=== PATIENT | female | born 1960 | race African-American/Black ===

== ENCOUNTER 2017-04-04 11:00 | Outpatient (CLI) | payer MEDICARE, MEDICAID ==
[2017-04-04 11:11] LABS: #Basophils 0.1 thou/uL (0.0-0.2); #Eosinphils 0.3 thou/uL (0.0-0.7); #Lymphocytes 2.7 thou/uL (1.20-3.40); #Monocytes 0.7 thou/uL (0.11-0.59); #Neutrophils 5.5 thou/uL (1.40-6.50); %Basophils 1.3 % (0.0-1.0); %Eosinophils 3.7 % (0.0-10.0); %Lymphocytes 28.6 % (21.0-51.0); %Monocytes 7.6 % (0.0-10.0); %Neutrophils 58.9 % (42.0-75.0); Hemoglobin 12.4 g/dL (12.0-16.0); Mean Corpuscular HGB CONC 34.7 g/dL (32.0-36.0); Mean Corpuscular Hemoglobin 31.7 pg (27.0-31.0); Mean Corpuscular Volume 91.3 fl (81.0-99.0); Mean Platelet Volume 7.8 fL (7.4-10.4); Platelet Count 203 thou/uL (130-400); RBC Distribution Width 12.7 % (11.5-14.5); White Blood Cell (WBC) Count 9.3 thou/uL (4.8-10.8)
[2017-04-04 11:29] LABS: Hemoglobin A1c 6.3 % (4.0-6.0)
[2017-04-04 11:31] LABS: ALT (SGPT) 19 U/L (8-55); AST (SGOT) 21 U/L (5-34); Albumin 4.1 g/dL (3.5-5.0); Alkaline Phosphatase 76 U/L (40-150); Anion Gap 14 mmol/L (10-20); BUN (Urea Nitrogen) 28 mg/dL (9.8-20.1); Bilirubin, Total 0.5 mg/dL (0.2-1.2); Calc. Creatinine Clearance 0 mL/min (70-130); Calcium 9.8 mg/dL (7.8-10.44); Carbon Dioxide 31 mmol/L (22-29); Cardiac Risk 2.7 (Less than 4.5); Chloride 97 mmol/L (98-107); Cholesterol 131 mg/dl (< 200 Desired); Estimated GFR-MDRD 56; Glucose 113 mg/dL (70-105); HDL Cholesterol 49 mg/dL (>60 Neg Risk); LDL Cholesterol, Calculated 74 mg/dL; Potassium 4.2 mmol/L (3.5-5.1); Protein, Total 7.1 g/dL (6.0-8.3); Sodium 138 mmol/L (136-145); Triglycerides 40 mg/dL (Less than 150)
[2017-04-04 12:05] LABS: Free T4 (Free Thyroxine) 1.05 ng/dL (0.70-1.48); Thyroid Stimulating Hormone 1.3385 uIU/mL (0.35-4.94)
== END 2017-04-04 11:01 | disposition home or self-care (01) ==
LOC: HPCALD 11:00
PROVIDERS: ATTEND Family Medicine
DX: E11.9 Type 2 diabetes mellitus without complications (principal); I10 Essential (primary) hypertension; E03.9 Hypothyroidism, unspecified; E78.5 Hyperlipidemia, unspecified
CPT/HCPCS: 36415; 80053; 80061; 83036; 84439; 84443; 85025

== ENCOUNTER 2017-06-20 16:31 | Outpatient (CLI) | payer MEDICARE, MEDICAID ==
--- NOTE | 2017-06-20 21:42 | RAD ---
LEFT SHOULDER THREE VIEWS: 06/20/2017 FINDINGS: Degenerative changes are seen in the AC joint. Some osteophytes project downward and could impinge upon the rotator cuff. The glenohumeral joint was unremarkable. The patient's generator of her car diac pacer partially obscures the scapula on some views. IMPRESSION: Degenerative changes of the acromioclavicular joint. POS: HOME
== END 2017-06-20 16:32 | disposition home or self-care (01) ==
LOC: BURRAD 16:31
PROVIDERS: ATTEND Family Medicine
DX: M25.512 Pain in left shoulder (principal)

== ENCOUNTER 2019-08-07 08:19 | Outpatient (CLI) | payer MEDICARE, MEDICAID ==
--- NOTE | 2019-08-07 14:18 | CT ---
CT ABDOMEN AND PELVIS WITHOUT CONTRAST: 08/07/2019 COMPARISON: 10/29/2011 FINDINGS: ABDOMEN: The lung bases are clear. The liver, spleen and pancreas are normal in appearance, within th e limitations of a noncontrast study. A small, 1 cm right adrenal mass is noted, that I do not see on the old scan, however, it has decidedly negative CT numbers in it, around -9 or -10. This suggests i t is almost certainly abnormalities adenoma and probably does not need further followup. The kidneys show no hydronephrosis. A cyst has been noted on the prior study, in the upper pole of the right kidn ey; today it measures 4.2 cm (3.5 cm previously). The aorta is normal lacunar infarction caliber. There is some mild mucosal thickening in the hepatic flexure of the colon. This could signify infecti ous or inflammatory etiologies. The remainder of the colon showed no acute changes. The small bowel i s not dilated. There is no free air or free fluid. PELVIS: No pelvic masses, fluid collections or inflammatory changes. The body of the uterus is a bit bulky and large in size. Fibroids are possible but ultrasound would better evaluate this. The bony pelvis appears intact. There are degenerative changes present throughout the spine, which ar e fairly significant in degree. Especially at the L3-L4 level on the left, there is some definite for aminal narrowing due to a mildly bulging disk, facet hypertrophy and arthritic change. There is some streaking in the soft tissues of the buttocks, primarily on the left side, just below the gluteus max imus and perhaps some on the right side medially. I do not see a focal fluid collection to suggest a drainable abscess. IMPRESSION: 1. No acute internal abdominal or pelvic findings. No evidence of diverticulitis or other typical cau ses for left lower quadrant pain. 2. A 2 cm right adrenal adenoma. Further followup is probably not needed at this time. 3. A 4.5 cm right renal cyst, slightly larger than it was in 2012. At some point an elective ultrasou nd might be good to before it is purely cystic; however, a growth of just 0.5 cm over a seven year pe riod of time suggests that this is likely to be very benign. 4. Mild mucosal thickening of the hepatic flexure of the colon. Significance unknown but most common causes are infectious or inflammatory etiologies. The remainder of the bowel showed no acute change. 5. Degenerative changes of the lumbar spine with particular left foraminal narrowing at L3-L4 and spi nal stenosis at this level. 6. Some streaking in the soft tissues of the left lower buttocks and perhaps medial right buttocks. T he etiology is unknown at this point. I do not know if there has been prior trauma here or any reason for an inflammatory component. I do not see any drainable abscess. POS: HOME
== END 2019-08-07 08:20 | disposition home or self-care (01) ==
LOC: BURCT 08:19
PROVIDERS: ATTEND Family Medicine
DX: R10.32 Left lower quadrant pain (principal); D35.01 Benign neoplasm of right adrenal gland; N28.1 Cyst of kidney, acquired; K63.89 Other specified diseases of intestine; M47.816 Spondylosis without myelopathy or radiculopathy, lumbar region; M48.061 Spinal stenosis, lumbar region without neurogenic claudication
CPT/HCPCS: 74176